=== PATIENT | female | born 1950 | race Caucasian/White ===

== ENCOUNTER 2024-04-02 13:29 | Emergency (ER) | payer MEDICARE, SELFPAY ==
[2024-04-02 13:32] VITALS: BP 126/101; PULSE 73; RESP 18; TEMP 36.4; O2SAT 98; BMI 38.1
--- NOTE | 2024-04-02 14:05 | CT_ITS ---
STUDY: CT BRAIN WITHOUT CONTRAST REASON FOR EXAM: Female, 73 years old. History of idiopathic intracranial hypertension YAP, HX-MIGRAINES, UNSTEADY RADIATION DOSAGE (If Supplied By Facility): CTDIvol = ( 44.99 ) mGy, DLP = ( 745.49 ) mGycm TECHNIQUE: Transaxial CT imaging of the brain was performed without administration of intravenous contrast material. Individualized dose optimization techniques were used for this CT. COMPARISON: None. FINDINGS: Major intracranial venous sinuses: No abnormal hyperdensity MCA and basilar arteries assessment: No abnormal hyperdensity No visualized extra-axial fluid collection or subdural hemorrhage. Normal soft tissue structures. Normal calvarium. There is mild cerebral atrophy with widening of the extra-axial spaces and ventricular dilatation. Normal white matter tracts of the cerebral hemispheres. Normal basal ganglia and thalami. Normal brainstem. Normal cerebellum. There is no intracranial hemorrhage. There are no findings of an acute ischemic infarction. Normal visualized paranasal sinuses. CT/Brain/Head without Contrast IMPRESSION: 1. Chronic involutional changes of the brain. Electronically Signed: Alexy Pizarro MD at 15:16 EST ,
--- NOTE | 2024-04-02 14:05 | EKG12_ITS ---
Test Reason : DIZZINES Blood Pressure : */* mmHG Vent. Rate : 66 BPM Atrial Rate : 66 BPM P-R Int : 162 ms QRS Dur : 94 ms QT Int : 414 ms P-R-T Axes : -12 -27 29 degrees QTcB Int : 434 ms Normal sinus rhythm Normal ECG Confirmed by Raul Araiza ([id number]), writer editor TAMMY QUINN ([id number]) on 04/04/2024 11:01:18 AM Referred By: Confirmed By: Raul Araiza
--- NOTE | 2024-04-02 14:07 | EX.ED.DYSGE1 ---
HPI History of Present Illness Chief Complaint: General Illness Narrative Narrative: Patient is a 73-year-old female past medical history of idiopathic intracranial hypertension, multiple falls who presents to the emergency department with a chief complaint of generalized not feeling well and headache. Patient states that she has a history of headaches that she gets them frequently as she has a history of idiopathic intracranial hypertension and notes that she has not had to have a lumbar puncture and his significant mount time. She states that yesterday she was out shopping and noted that while in the store pushing the shopping cart she lost her balance and fell. States that she did not hit her head did not pass out. Patient denies any blood thinning medications. Patient states that she did not eat prior to going shopping nor did she have much to drink and she states that she was not eating or drinking the entire day while shopping either. Patient states that a week ago she had vaccinations for COVID, flu, RSV and since then has not felt well. PFSH PFSH Home Medications ?Medication ?Instructions ?Recorded ?Last Taken ?Type ondansetron 4 mg disintegrating 4 mg PO Q6H PRN nausea and 04/02/24 Unknown Rx tablet vomiting #20 tabs Allergy/AdvReac Type Severity Reaction Status Date / Time gentamicin Allergy Hives Verified 04/02/24 13:32 Sulfa (Sulfonamide Allergy Swelling Verified 04/02/24 13:32 Antibiotics) Social History Smoking Status: Never smoker ROS ROS ED ROS Narrative Constitutional: Complains of headache as noted above denies any fevers, chills, lightness, dizziness Eyes: Denies any changes to double vision blurry vision Cardiovascular: Denies chest pain or palpitations Respiratory: Denies coughing wheezing, shortness of breath Abdomen: Complains of nausea denies vomiting diarrhea or abdominal pain : Denies any urinary symptoms Neurological: Patient states that she is chronically off balance this is not new for her and states that she has multiple falls with her most recent one being yesterday as noted above Musculoskeletal: Denies any back pain Skin: Denies rashes lesions EXAM Physical Exam Narrative Exam Narrative: General: Patient lying in bed rest comfortably did not appear to be in acute distress Head: Atraumatic, normocephalic Eyes: PERRL body, EOMI bladder, no conjunctival injection noted Neck: Soft, supple, trachea midline Cardiovascular: Regular rate and rhythm no murmurs gallops rubs noted Respiratory: Clear to auscultation bilaterally no rales rhonchi or wheeze noted Abdomen: Soft, nondistended, nontender to palpation, bowel sounds present x 4 Extremities: +4/5 strength noted in the bilateral upper and lower extremities, radial pulses +2/4 in the bilateral upper extremities Neurological: Patient is following commands knew that she was at [facility] years 2023. Patient completed finger-nose test bilaterally without any difficulty, NIH of 0 GCS 15 Skin: Warm, dry, intact, no rashes or lesions noted Const Vital Signs: 04/02/24 13:32 04/02/24 15:31 Temperature 97.6 F L Temperature Source Oral Pulse Rate 73 81 Respiratory Rate 18 18 Blood Pressure 126/101 H 117/93 H Blood Pressure Mean 109 101 Pulse Ox 98 98 Oxygen Delivery Method Room Air Room Air MDM MDM MDM Narrative Medical decision making narrative: Patient is a 73-year-old female who presents to the emergency department with a chief complaint of generalized not feeling well, headache. Patient will have a workup performed here on the differential diagnose includes but not limited to flare of her idiopathic intracranial hypertension, UTI, ACS, COVID flu and RSV. Once workup is obtained reviewed she will be reevaluated. Patient will be given a gram of Tylenol for her headache. Patient CBC was reviewed and was largely unremarkable no evidence leukocytosis white blood count normal at 4.6, hemoglobin stable 12.6, plate count was normal at 264. Patient sodium normal 139, potassium normal at 4.2, creatinine was 1.07 no previous blood draws to compare to. Patient AST and ALT were 6 and 32 respectively. Patient's urinalysis showed negative nitrites, 25 leukocyte esterase, 0-5 white cells and 2+ bacteria she does not have any urinary symptoms we will send this for culture as she does have bacteria in her urine urine. I advised her to follow-up on this urine culture with her primary care physician. Patient CT head and brain was reviewed and showed chronic involutional changes of the brain. Patient's EKG reviewed independently interpreted by myself shows sinus rhythm with a rate of 66 bpm. On reevaluation of the patient states that she still has a slight headache therefore she will be given Toradol. On reevaluation of the patient and she is feeling much improved she would like to go home at this point time. She is advised to use ibuprofen Tylenol for her headache control and ensure adequate hydration with water. She is advised to follow-up with her primary care physician outpatient setting. She is encouraged return with worsening symptoms or any concerns. Her and her significant other at bedside are agreeable this plan all questions answered she was discharged home in stable condition. Patient is requesting a prescription for Zofran in case she gets nauseous at home. This was sent to her pharmacy. Lab Data Labs: Laboratory Results - last 24 hr 04/02/24 04/02/24 14:28 14:48 WBC 4.6 RBC 4.50 Hgb 12.6 Hct 41.0 MCV 91.1 MCH 28.0 MCHC 30.7 L RDW Std Deviation 46.1 H RDW Coeff of Allan 13.7 Plt Count 264 MPV 11.4 Immature Gran % (Auto) 0.200 Neut % (Auto) 36.5 L Lymph % (Auto) 49.5 H [place] % (Auto) 9.6 Eos % (Auto) 3.5 Baso % (Auto) 0.7 Absolute Neuts (auto) 1.7 L Absolute Lymphs (auto) 2.26 Nucleated RBC % 0 Sodium 139 Potassium 4.2 Chloride 104 Carbon Dioxide 32.0 Anion Gap 3 L BUN 25 H Creatinine 1.07 H Estim Creat Clear Calc 49.44 Est GFR (MDRD) Af Amer 64 Est GFR (MDRD) Non-Af 53 L BUN/Creatinine Ratio 23.4 H Glucose 99 Calcium 9.8 Total Bilirubin 0.30 AST 6 L ALT 32 Alkaline Phosphatase 43 L Total Protein 7.3 Albumin 3.6 Globulin 3.7 Albumin/Globulin Ratio 1.0 Urine Color Yellow Urine Clarity Sl. Cloudy Urine pH 6.0 Ur Specific [place] 1.010 Urine Protein Negative Urine Glucose (UA) Normal Urine Ketones Negative Urine Occult Blood Negative Urine Nitrite Negative Urine Bilirubin Negative Urine Urobilinogen Normal Ur Leukocyte Esterase 25 H Urine RBC 0 SEEN Urine WBC 0-5 SEEN Ur Squamous Epith Cells 0-5 SEEN Urine Bacteria 2+ Urine Mucus 0 SEEN Radiography Diagnostic Testing: Clinical Impression(s) from Imaging Studies Brain CT 04/02/24 14:05 IMPRESSION: 1. Chronic involutional changes of the brain. Electronically Signed: Alexy Pizarro MD at 15:16 EST , Discharge Plan Triage Chief Complaint: General Illness ED Provider: Jose Alejandro Chavira Dx/Rx/DC Orders Clinical Impression: Headache Prescriptions: New ondansetron 4 mg tablet,disintegrating 4 mg PO Q6H PRN (Reason: nausea and vomiting) Qty: 20 0RF Primary Care Provider: Zainab Raymond Referrals: Zainab Raymond MD [Primary Care Provider] - Activity Restrictions/Additional Instructions: Follow-up with your primary care physician outpatient setting. Rotate Tylenol and ibuprofen for headache control. Ensure adequate oral hydration with water. Return with worsening symptoms or other concerns take Zofran as prescribed Print Language: Arabic Disposition Disposition: Home, Self Care
[2024-04-02] MEDS: Ondansetron 4 MG/2 ML Vial IV ×2 (14:24→16:12)
[2024-04-02] MEDS: Acetaminophen 500 MG Tablet 1000 MG PO (14:24)
[2024-04-02 14:38] LABS: Absolute Lymphocyte Count 2.26 X10^3/uL (0.83-4.51); Absolute Neutrophil Count 1.7 X10^3/uL (2.0-7.7); Basophil# 0.03 X10^3/uL; Basophil% 0.7 % (0-1); Eosinophil# 0.16 X10^3/uL; Eosinophils% 3.5 % (0-5); Hemoglobin 12.6 g/dL (12.0-15.0); Lymphocyte # 2.26 X10^3/ul (0.83-4.51); Lymphocyte % 49.5 % (19-41); Mean Corp Hgb Conc 30.7 g/dL (32-36); Mean Corpuscular Volume 91.1 fL (81-99); Mean Platelet Vol. 11.4 fl (6.2-12.0); Monocyte# 0.44 X10^3/uL; Monocyte% 9.6 % (0-10); NRBC Flagged by Analyzer 0 % (0-5); Neutrophil # 1.67 X10^3/uL (2.7-7.7); Neutrophil % 36.5 % (47-70); Platelet Count 264 K/mm3 (150-450); RBC Distribution Width CV 13.7 % (11.6-14.6); RBC Distribution Width SD 46.1 fl (35.1-43.9); White Blood Count 4.6 K/mm3 (4.4-11.0)
[2024-04-02 14:55] LABS: Color, Urine Yellow (Yellow); Glucose, Dipstick Normal (Normal); Ketone-Dipstick Negative (Negative); Leukocyte Esterase-Dipstick 25 /ul (Negative); Mucous, Urine 0 SEEN /hpf (<or=2+); Nitrite-Dipstick Negative (Negative); Occult Blood-Urine Negative /ul (Negative); Protein-Dipstick Negative (Negative); Red Blood Cells-Urine 0 SEEN /hpf (0-5); Urine Bilirubin Dipstick Negative (Negative); Urine Clarity Sl. Cloudy (Clear); Urine Urobilinogen Normal (Normal)
[2024-04-02 14:57] LABS: AST(SGOT) 6 U/L (15-37); Alanine Aminotransfer ALT/SGPT 32 U/L (13-56); Albumin, Serum 3.6 g/dL (3.2-5.0); Alkaline Phosphatase 43 U/L (45-117); Anion Gap 3 (5-15); BUN 25 mg/dL (7-18); BUN/Creat Ratio 23.4 RATIO (10-20); Calcium,Total 9.8 mg/dL (8.5-10.1); Chloride 104 mmol/L (98-107); Creatinine, Serum 1.07 mg/dL (0.55-1.02); EST Glomerular Filtration Rate 53 mL/min (>60); Est Glom Filt Rate - Afr Amer 64 mL/min (>60); Estimated Creatinine Clearance 49.44 ml/min; Globulin 3.7 g/dL (2.2-4.2); Glucose 99 mg/dL (74-106); Potassium 4.2 mmol/L (3.5-5.1); Protein, Total 7.3 g/dL (6.4-8.2); Sodium Level 139 mmol/L (136-145)
[2024-04-02 15:02] LABS: Bacteria 2+ /hpf (None Seen); Squamous Epithelial Cells - UA 0-5 SEEN /hpf (5-10); White Blood Cells 0-5 SEEN /hpf (0-5)
[2024-04-02 15:31] VITALS: BP 117/93; PULSE 81; RESP 18; O2SAT 98
[2024-04-02] MEDS: Ketorolac 15 MG/ML Vial IV (16:12)
== END 2024-04-02 17:47 | disposition home or self-care (01) ==
PROVIDERS: Emergency Provider Emergency Medicine; PCP Internal Medicine; Visit Provider Emergency Medicine
DX: R51.9 Headache, unspecified (principal)
CPT/HCPCS: 70450; 80053; 81001; 85025; 87086; 87088; 87186; 93005; 96374; 96375; 96376; 99283; A4216; J2405